=== PATIENT | female | born 2000 | race Caucasian/White ===

== ENCOUNTER 2021-09-22 23:08 | Emergency (ER) | payer OTHER ==
[2021-09-22 23:19] VITALS: BP 124/76; PULSE 101; TEMP 100.8
[2021-09-22] MEDS ORDERED: ACETAMINOPHEN 325 MG TABLET (FP) PO ONE (23:55)
[2021-09-23] MEDS ORDERED: ACETAMINOPHEN 325 MG TABLET (FP) ONE (00:11)
[2021-09-24 10:10] LABS: SARS-CoV-2 NAA Not Detected (Not Detected)
== END 2021-09-23 00:42 | disposition home or self-care (01) ==
LOC: JER 23:08
DX: J02.8 Acute pharyngitis due to other specified organisms (principal); R50.9 Fever, unspecified
CPT/HCPCS: 87651; 87804; 99283-25; C9803-CS; U0003; U0005